=== PATIENT | male | born 1980 | race Caucasian/White ===

== ENCOUNTER 2017-11-13 10:18 | Emergency (ER) | payer SELFPAY ==
[~2017-11-13] VITALS: Ht 185.4 cm; Wt 86.2 kg
[2017-11-13 10:18] VITALS: BP 120/68
== END 2017-11-13 12:53 | disposition home or self-care (01) ==
LOC: ER 10:20
DX: J06.9 Acute upper respiratory infection, unspecified (principal); B35.1 Tinea unguium; F17.210 Nicotine dependence, cigarettes, uncomplicated; F10.10 Alcohol abuse, uncomplicated; F17.200 Nicotine dependence, unspecified, uncomplicated
CPT/HCPCS: 99283; A4606; Z7610

== ENCOUNTER 2020-07-04 04:15 | Emergency (ER) | payer MEDICAID ==
[~2020-07-04] VITALS: Ht 180.3 cm; Wt 77.1 kg
--- NOTE | 2020-07-04 04:28 | NUR ---
EMT AT BED SIDE FOR WOUND CARE
--- NOTE | 2020-07-04 04:30 | NUR ---
BIBS FOR EVALUATION OF L HAND PUNCURE WOUND S/P FALL 12HRS AGO, TDAP UPTODATE
--- NOTE | 2020-07-04 04:56 | NUR ---
TECH AT BEDSIDE FOR XRAY
--- NOTE | 2020-07-04 05:53 | NUR ---
Patient discharged to home in stable condition. Written and verbal after care instructions given. Patient verbalizes understanding of instruction.
[2020-07-04 05:54] VITALS: BP 128/83
== END 2020-07-04 05:54 | disposition home or self-care (01) ==
LOC: ER 04:15
DX: S61.432A Puncture wound without foreign body of left hand, initial encounter (principal); Z59.0 Homelessness; W18.39XA Other fall on same level, initial encounter; Y93.89 Activity, other specified; Y92.89 Other specified places as the place of occurrence of the external cause; Y99.8 Other external cause status
CPT/HCPCS: 73130; 99283; A4217; A6403

== ENCOUNTER 2020-07-17 11:59 | Emergency (ER) | payer MEDICAID ==
[~2020-07-17] VITALS: Ht 180.3 cm; Wt 81.6 kg
[2020-07-17 12:08] VITALS: BP 130/77
--- NOTE | 2020-07-17 12:23 | NUR ---
PROVIDED W/ WOUND CARE. PT D/C W/ ANTIBIOTIC PRESCIPTION IN STABLE CONDITION.
[2020-07-17] MEDS ORDERED: TRAMADOL HCL 50 MG TABLET PO ONE (12:30)
== END 2020-07-17 12:25 | disposition home or self-care (01) ==
LOC: ER 11:59
DX: S71.112A Laceration without foreign body, left thigh, initial encounter (principal); Z59.0 Homelessness; V98.8XXA Other specified transport accidents, initial encounter; Y93.55 Activity, bike riding; Y92.89 Other specified places as the place of occurrence of the external cause; Y99.8 Other external cause status

== ENCOUNTER 2020-09-13 21:47 | Emergency (ER) | payer MEDICAID ==
[~2020-09-13] VITALS: Ht 180.3 cm; Wt 77.1 kg
[2020-09-13] MEDS ORDERED: IBUPROFEN 400 MG TABLET ONE (22:15)
[2020-09-13] MEDS: IBUPROFEN 400 MG TABLET PO ONE (22:17)
--- NOTE | 2020-09-13 22:17 | NUR ---
RADIOLOGY AT BEDSIDE
[2020-09-13] MEDS ORDERED: SULFAMETH/TRIMETH 800/160 MG 1 UDTAB TABLET ONE (22:56)
[2020-09-13] MEDS ORDERED: CEPHALEXIN MONOHYDRATE 500 MG CAPSULE PO ONE (22:56)
[2020-09-13] MEDS: CEPHALEXIN MONOHYDRATE 500 MG CAPSULE PO ONE (23:00)
[2020-09-13] MEDS: SULFAMETH/TRIMETH 800/160 MG 1 UDTAB TABLET PO ONE (23:00)
--- NOTE | 2020-09-13 23:01 | NUR ---
Patient discharged to home in stable condition. Written and verbal after care instructions given. Patient verbalizes understanding of instruction and RX. Pt ambulated with staedy gait, vss.
[2020-09-13 23:02] VITALS: BP 121/76
== END 2020-09-13 23:02 | disposition home or self-care (01) ==
LOC: ER 21:47
DX: L03.113 Cellulitis of right upper limb (principal)
CPT/HCPCS: 73130-TC

== ENCOUNTER 2021-06-30 19:05 | Emergency (ER) | payer MEDICAID ==
[~2021-06-30] VITALS: Ht 180.3 cm; Wt 86.2 kg
--- NOTE | 2021-06-30 19:08 | NUR ---
called for triage not in the waiting room.
--- NOTE | 2021-06-30 19:25 | NUR ---
CALLED FOR TRIAGE. NO ANSWER
--- NOTE | 2021-06-30 20:00 | NUR ---
PT BIBS FOR C/O R KNEE PAIN AND ABRASION S/P LANDED ON HIS KNEE WHILE SKATEBOARDING. PT PRESENTS ALERT&ORIENTED X4 WITH NON LABORED SPONTANEOUS BREATHING.
--- NOTE | 2021-06-30 20:11 | NUR ---
AUTOMOTIVE ENGINEERING TECHNICIAN AT BEDSIDE.
--- NOTE | 2021-06-30 20:34 | NUR ---
Patient does not wish to proceed with medical care recommended by Dr. Ochoa. Patient given information related to possible complications, up to and including , which could occur as a result of leaving the hospital at this time. Patient verbalizes understanding of risks involved due to leaving against medical advice. Patient has signed AMA form.
[2021-06-30 20:40] VITALS: BP 111/80
--- NOTE | 2021-06-30 20:41 | NUR ---
pt was provided with poornima wrap & crutches. seen by PA and advised to stay, but pt refused and signed ama. pt is aware of risks.
== END 2021-06-30 20:50 | disposition home or self-care (01) ==
LOC: ER 19:06
DX: S80.211A Abrasion, right knee, initial encounter (principal); F17.200 Nicotine dependence, unspecified, uncomplicated; Z60.2 Problems related to living alone; W18.39XA Other fall on same level, initial encounter; Y93.89 Activity, other specified; Y92.89 Other specified places as the place of occurrence of the external cause; Y99.8 Other external cause status
CPT/HCPCS: 73564-TC

== ENCOUNTER 2022-11-06 08:07 | Emergency (ER) | payer MEDICAID ==
[~2022-11-06] VITALS: Ht 180.3 cm; Wt 81.6 kg
[2022-11-06 08:21] VITALS: BP 123/83
--- NOTE | 2022-11-06 08:21 | NUR ---
Connor fishman in EDM - 11/06/22 at 0905 by FEDERICO BIBS W/ C/O PENILE SWELLING X 4 DAYS S/P COITUS. TO ER BED 14.
--- NOTE | 2022-11-06 08:23 | NUR ---
C/O PENILE SWELLING X 4 DAYS S/P COITUS. PAIN SCALE 5/10. PT AMBULATED TO BED WITH STEADY GAIT. AAOX4. AWAITING MD ORDERS.
--- NOTE | 2022-11-06 08:58 | NUR ---
PT VERBALIZED THAT HE WANTS TO LEAVE THE HOSPITAL. PT A/O X4 AND NOT ON HOLD AND UNDERSTANDS RISKS AND BENEFITS. DR BEARD MADE AWARE.
--- NOTE | 2022-11-06 09:11 | NUR ---
Patient does not wish to proceed with medical care recommended by Dr. Pittman. Patient given information related to possible complications, up to and including , which could occur as a result of leaving the hospital at this time. Patient verbalizes understanding of risks involved due to leaving against medical advice. Patient refused to sign AMA form and left facility.
[2022-11-06 09:22] LABS: BILIRUBIN,URINE NEGATIVE (NEGATIVE); COLOR,URINE YELLOW (YELLOW); LEUKOCYTE ESTERASE ,URINE 2+ (NEGATIVE); NITRITE, URINE NEGATIVE (NEGATIVE); PROTEIN,URINE NEGATIVE (NEGATIVE); UGLUCOSE NEGATIVE (NEGATIVE); UROBILINOGEN,URINE 0.2 EU/dL (0.2)
[2022-11-06 09:28] LABS: RBC,URINE 0-2 /HPF (0-2)
[2022-11-06 09:29] LABS: BACTERIA,URINE Rare /HPF (None Seen); SQUAMOUS EPITHELIAL CELL,UR Few /HPF (None Seen)
== END 2022-11-06 09:13 | disposition left against medical advice (07) ==
LOC: ER 08:15
DX: N48.89 Other specified disorders of penis (principal); F17.200 Nicotine dependence, unspecified, uncomplicated; Z60.2 Problems related to living alone
CPT/HCPCS: 81001; 87086-TC

== ENCOUNTER 2022-11-18 20:37 | Emergency (ER) | payer MEDICAID ==
[~2022-11-18] VITALS: Ht 180.3 cm; Wt 77.1 kg
--- NOTE | 2022-11-18 21:40 | NUR ---
BIBS. PENILE SWELLING AND PAIN UPON URINATION X 2 WEEKS. PATIENT IS AAOX4. ABLE TO MAKE NEEDS KNOWN. PLACED COMFORTABLY IN BED. GOWN CHANGED. VITALS CHECKED.
--- NOTE | 2022-11-18 21:58 | NUR ---
URINE SPECIMEN SENT TO LAB
[2022-11-18 23:09] LABS: BILIRUBIN,URINE NEGATIVE (NEGATIVE); COLOR,URINE YELLOW (YELLOW); LEUKOCYTE ESTERASE ,URINE 2+ (NEGATIVE); NITRITE, URINE NEGATIVE (NEGATIVE); PH,URINE 5.5 (5.0-8.0); PROTEIN,URINE 1+ mg/dl (NEGATIVE); UGLUCOSE NEGATIVE (NEGATIVE); UROBILINOGEN,URINE 0.2 EU/dL (0.2)
--- NOTE | 2022-11-18 23:19 | NUR ---
PT IS NOT NOTED IN THE ROOM. PT HAVE ELOPED.
--- NOTE | 2022-11-18 23:53 | NUR ---
Patient eloped from facility. ER MD notified.
[2022-11-18 23:55] VITALS: BP 113/88
[2022-11-19 00:55] LABS: RBC,URINE 51-80 /HPF (0-2); WBC,URINE 81-100 /HPF (0-3)
[2022-11-19 00:56] LABS: BACTERIA,URINE Moderate /HPF (None Seen); CALCIUM OXALATE CRYSTALS,UR Few /HPF (None Seen); SQUAMOUS EPITHELIAL CELL,UR Few /HPF (None Seen)
== END 2022-11-18 23:57 | disposition left against medical advice (07) ==
LOC: ER 20:43
DX: Z53.21 Procedure and treatment not carried out due to patient leaving prior to being seen by health care provider (principal)
CPT/HCPCS: 81001; 87086-TC; 87491; 87591

== ENCOUNTER 2024-09-30 14:02 | Emergency (ER) | payer MEDICAID, OTHER | END 2024-09-30 15:07 | disposition left against medical advice (07) | LOC: ER 14:02 | DX: S01.501A Unspecified open wound of lip, initial encounter (principal); Z53.21 Procedure and treatment not carried out due to patient leaving prior to being seen by health care provider; X58.XXXA Exposure to other specified factors, initial encounter; Y93.89 Activity, other specified; Y92.89 Other specified places as the place of occurrence of the external cause; Y99.8 Other external cause status ==

== ENCOUNTER 2025-02-21 14:49 | Emergency (ER) | payer OTHER ==
[~2025-02-21] VITALS: Ht 180.3 cm; Wt 70.8 kg
[2025-02-21] MEDS ORDERED: CEPH500C2 PO (15:45)
[2025-02-21] MEDS ORDERED: SULF1TAB48 PO (15:45)
[2025-02-21] MEDS ORDERED: LIDOCAINE 1%-EPI 1:100,000 20 ML VIAL ONE (15:50)
[2025-02-21] MEDS ORDERED: CEPHALEXIN MONOHYDRATE 500 MG CAPSULE PO ONE (15:58)
[2025-02-21] MEDS ORDERED: SULFAMETH/TRIMETH 800/160 MG 1 UDTAB TABLET ONE (15:58)
[2025-02-21] MEDS ORDERED: TDAP [DIPH/PERTUSSIS/TET] 0.5 ML VIAL IM ONE (15:59)
[2025-02-21] MEDS: TDAP [DIPH/PERTUSSIS/TET] 0.5 ML VIAL IM ONE (16:00)
[2025-02-21] MEDS: LIDOCAINE 1%-EPI 1:100,000 20 ML VIAL TP ONE (16:08)
[2025-02-21] MEDS: CEPHALEXIN MONOHYDRATE 500 MG CAPSULE PO ONE (16:09)
[2025-02-21] MEDS: SULFAMETH/TRIMETH 800/160 MG 1 UDTAB TABLET PO ONE (16:09)
[2025-02-21 16:26] VITALS: BP 119/81; TEMP 98.6; O2SAT 100
== END 2025-02-21 16:26 | disposition home or self-care (01) ==
LOC: ER 15:00
DX: L02.511 Cutaneous abscess of right hand (principal); L03.113 Cellulitis of right upper limb; F17.200 Nicotine dependence, unspecified, uncomplicated; Z59.00 Homelessness unspecified; Z60.2 Problems related to living alone
CPT/HCPCS: 99284; 10060; 90471; 90715; J3490